=== PATIENT | female | born 1985 | race African-American/Black ===

== ENCOUNTER 2018-06-04 15:18 | Inpatient (IN) | END 2018-06-08 18:15 | disposition home or self-care (01) | DRG 313 ==

== ENCOUNTER 2018-06-14 20:50 | Emergency (ER) | END 2018-06-14 23:08 | disposition home or self-care (01) ==

== ENCOUNTER 2018-06-21 16:28 | Emergency (ER) | END 2018-06-21 17:00 | disposition home or self-care (01) ==

== ENCOUNTER 2019-01-23 12:30 | Emergency (ER) | payer MEDICARE, MEDICAID ==
[~2019-01-23] VITALS: Ht 162.6 cm; Wt 129.9 kg
[~2019-01-23 12:30] MED LIST: ACET325T33 PO; GABA300C16 PO; HALO5TAB23 PO; HYDR-3672 PO; INSU100I12 SQ; LANT3I SC; METF500T24 PO; PANT40TA4 PO; QUET400T PO; SUCR1TAB56 PO; TRAZ150T65 PO
[2019-01-23 12:38] VITALS: Ht 162.6 cm; Wt 129.9 kg
--- NOTE | 2019-01-23 12:52 | ERD ---
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 Patient reports several seizures earlier today with a fall and head injury. Total body pain requesting opiate analgesics. No specific chest pain, palpitations or shortness of breath. Complaining of generalized, crampy, non rating abdominal pain and 2-day history of black tarry stools. Mild, pressure- like, generalized headache but no visual changes no fevers or chills. ROS All systems reviewed and are negative except as per history of present illness. Medications Home Meds Reported Medications Gabapentin* (Gabapentin*) 300 Mg Capsule, 300 MG PO TID, #90 CAP 01/23/19 Multivitamin* (Daily Value*) 1 Each Tablet, 1 TAB PO DAILY, TAB 01/23/19 Calcium Citrate/Vitamin D (Citracal-Vitamin D 200 MG-250) 1 Each Tablet, 1 EACH PO DAILY, TAB 01/23/19 Escitalopram Oxalate* (Lexapro*) 5 Mg Tablet, 5 MG PO DAILY, #30 TAB 01/23/19 Trazodone Hcl* (Trazodone Hcl*) 50 Mg Tablet, 50 MG PO QHS, #30 TAB 01/23/19 Fluoxetine Hcl* (Prozac*) 40 Mg Capsule, 40 MG PO DAILY, CAP 01/23/19 Sennosides/Docusate Sodium (SENEXON-S TABLET) 1 Each Tablet, 2 EACH PO QHS, TAB 01/23/19 Lorazepam* (Ativan*) 2 Mg Tablet, 2 MG PO Q6 PRN for ANXIETY, #60 TAB 01/23/19 Ondansetron Hcl* (Zofran*) 8 Mg Tablet, 8 MG PO Q6H PRN for NAUSEA AND OR VOMITING, TAB 01/23/19 Phenytoin* Sodium Extended (Dilantin*) 300 Mg Capsule, 300 MG PO BID, CAP 01/23/19 Meclizine Hcl* (Meclizine Hcl*) 25 Mg Tablet, 25 MG PO BID PRN for DIZZINESS, TAB 01/23/19 Valsartan-Hydrochlorothiazide (Valsartan-HCTZ) 80-12.5 Mg Tablet, 1 TAB PO DAILY, #30 TAB 01/23/19 Benztropine Mesylate* (Benztropine Mesylate*) 1 Mg Tablet, 1 MG PO BID, TAB 01/23/19 Sitagliptin* (Januvia*) 50 Mg Tablet, 50 MG PO DAILY, #30 TAB 01/23/19 Levetiracetam* (Levetiracetam*) 500 Mg Tablet, 500 MG PO BID, TAB 01/23/19 Discontinued Reported Medications Trazodone Hcl* (Trazodone Hcl*) 150 Mg Tablet, 150 MG PO QHS, #30 TAB 06/02/18 Insulin Lispro (Humalog Kwikpen U-100) 100 Unit/1 Ml Insuln.pen, 0 SQ AC A, EA SLIDING SCALE NO SCALE GIVEN 06/02/18 Metformin Hcl* (Metformin Hcl*) 500 Mg Tablet, 500 MG PO WITH BREAKFAST DINNE, #60 TAB 06/02/18 Hydralazine Hcl* (Hydralazine Hcl*) 50 Mg Tab, 50 MG PO QAM, #120 TAB 06/02/18 Quetiapine Fumarate* (Seroquel*) 400 Mg Tablet, 400 MG PO HS, TAB 06/02/18 Haloperidol* (Haldol*) 5 Mg Tab, 5 MG PO QHS, TAB 06/02/18 Discontinued Scripts Acetaminophen* (Tylenol*) 325 Mg Tablet, 2 TAB PO Q6 PRN for PAIN AND OR ELEVATED TEMP, #20 TAB Prov:HANNAH IBARRA PA-C 06/14/18 Sucralfate* (Carafate*) 1 Gm Tab, 1 GM PO Q6 for 30 Days, #120 TAB 6 Refills Prov:MARTINE ROD MD 06/08/18 Pantoprazole* (Pantoprazole*) 40 Mg Tablet.dr, 40 MG PO BID@,18 for 30 Days, #60 TAB Prov:MARTINE ROD MD 06/08/18 Gabapentin* (Gabapentin*) 300 Mg Capsule, 300 MG PO TID for 30 Days, #90 CAP Prov:MARTINE ROD MD 06/08/18 Insulin Glargine* (Lantus*) 100 Unit/Ml Soln, 20 UNIT SC QHS for 30 Days, #1 VIAL 6 Refills Prov:MARTINE ROD MD 06/08/18 Allergies Allergies: Coded Allergies: ibuprofen (Verified Allergy, Unknown, 01/23/19) iodine (Verified Allergy, Unknown, states she needs benadryl if iodine is used, 01/23/19) PMhx/Soc History of Surgery: Yes (Hyterectomy 02/2017) Anesthesia Reaction: No Hx Neurological Disorder: No Hx Respiratory Disorders: Yes (Asthma) Hx Cardiac Disorders: Yes (HTN; High cholesterol) Hx Psychiatric Problems: Yes (Schizophrenia; Depression; Bipolar) Hx Miscellaneous Medical Probl: Yes (GASTRIC ULCERS) Hx Alcohol Use: No Hx Substance Use: No Hx Tobacco Use: Yes (3CIG/DAY) FmHx No sudden cardiac or stroke Physical Exam Vitals Vital Signs Date Temp Pulse Resp B/P (MAP) Pulse Ox O2 O2 Flow FiO2 Time Delivery Rate 01/23/19 100 18 117/80 99 Room Air 18:15 (92) 01/23/19 104 20 109/45 96 Room Air 17:15 (66) 01/23/19 99.7 105 20 163/97 95 Room Air 15:32 (119) 01/23/19 106 24 167/75 96 Room Air 15:00 (105) 01/23/19 106 20 147/90 95 Room Air 14:00 (109) 01/23/19 99.7 122 20 170/85 96 12:38 (113) Physical Exam Const: Anxious, moderate distress. Head: Atraumatic Eyes: Normal Conjunctiva ENT: Normal External Ears, Nose and Mouth. Negative lane sign. Neck: Full range of motion. Nontender. Resp: Breath sounds are equal and clear to auscultation bilaterally Cardio: Regular rate and rhythm, no murmurs Abd: Soft, obese, non tender, non distended. No rebound or guarding normal bowel sounds Skin: No petechiae or rashes Back: No midline or flank tenderness Ext: No cyanosis, or edema. Neur: Awake and alert Psych: Cooperative, anxious. Result Diagram: 01/23/19 1330 01/23/19 1330 Results 24 hrs Laboratory Tests Test 01/23/19 13:15 01/23/19 13:30 01/23/19 13:34 01/23/19 13:58 Stool Occult Blood NEGATIVE White Blood Count 7.8 10^3/ul Red Blood Count 4.45 10^6/ul Hemoglobin 10.2 g/dl Hematocrit 33.1 % Mean Corpuscular 74.4 fl Volume Mean Corpuscular 22.9 pg Hemoglobin Mean Corpuscular 30.8 g/dl Hemoglobin Concent Red Cell Distribution 16.1 % Width Platelet Count 224 10^3/UL Mean Platelet Volume 10.4 fl Immature Granulocytes 0.600 % % Neutrophils % 68.9 % Lymphocytes % 19.8 % Monocytes % 10.3 % Eosinophils % 0.3 % Basophils % 0.1 % Nucleated Red Blood 0.0 /100WBC Cells % Immature Granulocytes 0.050 10^3/ul # Neutrophils # 5.4 10^3/ul Lymphocytes # 1.6 10^3/ul Monocytes # 0.8 10^3/ul Eosinophils # 0.0 10^3/ul Basophils # 0.0 10^3/ul Nucleated Red Blood 0.0 10^3/ul Cells # Prothrombin Time 12.6 Sec Prothrombin Time Ratio 1.0 INR International 0.93 Normalized Ratio Activated 28.9 Sec Partial Thromboplast Time Sodium Level 136 mmol/L Potassium Level 4.1 mmol/L Chloride Level 99 mmol/L Carbon Dioxide Level 28 mmol/L Anion Gap 9 Blood Urea Nitrogen 10 mg/dl Creatinine 0.56 mg/dl Est Glomerular Filtrat > 60 mL/min Rate mL/min Glucose Level 242 mg/dl Calcium Level 6.9 mg/dl Total Bilirubin 0.2 mg/dl Direct Bilirubin 0.00 mg/dl Indirect Bilirubin 0.2 mg/dl Aspartate Amino 17 IU/L Transf (AST/SGOT) Alanine 25 IU/L Aminotransferase (ALT/ SGPT) Alkaline Phosphatase 143 IU/L Total Protein 7.0 g/dl Albumin 3.7 g/dl Phenytoin (Dilantin) 13.7 ug/ml Level Ethyl Alcohol Level < 10.0 mg/dl Bedside Glucose 241 mg/dL Urine Opiates Screen Positive Urine Barbiturates Negative Urine Amphetamines Negative Screen Urine Benzodiazepines Negative Screen Urine Cocaine Screen Negative Urine Cannabinoids Negative Test 01/23/19 14:08 POC Beta HCG, NEGATIVE Qualitative Current Medications Medications Dose Sig/Marilyn Start Time Status Last (Trade) Ordered Route PRN Stop Time Admin Dose Reason Admin 50 mg ONCE ONCE 01/23/19 DC 01/23/19 Diphenhydrami IV 14:00 01/23/19 13:47 ne HCl 14:01 (Benadryl) 500 mg ONCE ONCE 01/23/19 DC 01/23/19 Levetiracetam PO 14:30 01/23/19 15:16 (Keppra) 14:31 650 mg ONCE ONCE 01/23/19 DC 01/23/19 Acetaminophen PO 14:30 01/23/19 14:12 (Tylenol 14:31 Tab) Lorazepam 1 mg ONCE ONCE 01/23/19 DC 01/23/19 (Ativan) IV 15:00 01/23/19 14:45 15:01 Ondansetron 4 mg ER BRIDGE 01/23/19 HCl (Zofran PRN IV 16:00 01/24/19 Inj) NAUSEA/VOMITI 15:59 NG 650 mg ER BRIDGE 01/23/19 Acetaminophen PRN PO 16:00 01/24/19 (Tylenol .MILD PAIN 15:59 Tab) 1-3 OR TEMP 1 tab ONCE ONCE 01/23/19 DC 01/23/19 Acetaminophen PO 19:00 01/23/19 19:03 / 19:01 Hydrocodone Bitart ([place] (5/325)) 50 mg ONCE ONCE 01/23/19 DC 01/23/19 Diphenhydrami IV 19:30 01/23/19 19:15 ne HCl 19:31 (Benadryl) Procedures/MDM DOCUMENTS REVIEWED: ED nurse, prior records EKG: Time: 1324. Sinus tachycardia. Ventricular rate 105. Normal IA QRS. Nonspecific T wave changes. No acute ST segment elevation or depression. No ectopy. My Interpretation IMAGING: Pelvis 1 view: No fracture or soft tissue abnormality Left hip: 2 views: No fracture, dislocation or soft tissue abnormality. PROCEDURE: CT Brain without contrast. CLINICAL INDICATION: Seizure. TECHNIQUE: A CT of the brain without contrast was performed utilizing axial sections from the skull base through the vertex. The patient was scanned without intravenous contrast enhancement. Sagittal and coronal reformatted images were obtained using the data from the axial images. Total exam DLP is 713.51 mGy-cm. CTDIvol is 38.20 mGy. One or more of the following dose reduction techniques were used: Automated exposure control, adjustment of the mA and/or kV according to patient size, use of iterative reconstruction technique. DICOM images are available. COMPARISON: None available FINDINGS: There is normal escalona-white matter differentiation. The ventricles and cisterns are normal. There is no intracranial hemorrhage or space-occupying lesion. There is no skull fracture or lytic lesion. IMPRESSION: 1. Normal noncontrast CT scan of the brain. 2. No intracranial hemorrhage. RPTAT: QQ .Jesus Alberto Avalos MD, MD Date Time Electronically viewed and signed by .Jesus Alberto Avalos MD, MD on 01/23/2019 15:17 .R/ [employer]ISION MAKIN-year-old female with history of hypertension, diabetes, bipolar, schizophrenia, obesity, seizure disorder, CVA at the age of [age] with residual left-sided deficit, obesity and GERD presents to the ED for evaluation of seizures. CBC significant for mild anemia consistent with prior results but no leukocytosis or thrombocytopenia. Chemistry reveals mild hyperglycemia but no electrolyte abnormalities, renal insufficiency, anion gap acidosis or criteria for DKA. Dilantin level is therapeutic at 13.7. Hypocalcemia consistent with prior results of uncertain etiology. Urine drugs of abuse screen is positive for opiates. Patient required lorazepam 1 mg IV prior to CT. CT of the brain to evaluate for bleed, infarct, mass and ischemia is unremarkable. Patient complained of ongoing severe left hip pain but radiographs of the pelvis and left hip are unremarkable for fracture, dislocation or soft tissue abnormalities. Patient continuously demanding intravenous opiates for pain control likely chronic as there is no clear identifiable acute process. fast food services manager consultation obtained. Telehealth psychiatry consultation and patient admitted to suicidal, command auditory hallucinations. Involuntary hold was rec ommended. PET team evaluation is pending. CALLS/CONSULTS: Time: 16:30, Telehealth psychiatry, Dr. Hernandez. Recommends involuntary hold. Time: 20:00. Endorsed to Dr Fraga Departure Diagnosis: Primary Impression: Suicidal ideations Additional Impressions: Seizure disorder Chronic pain Chronic pain type: other chronic pain Qualified Codes: G89.29 - Other chronic pain Condition: Serious RAIZA VARGAS MD Jan 23, 2019 12:52
[2019-01-23] MEDS ORDERED: DIPHENHYDRAMINE 50 MG INJ IV ONE ×2 (14:00→19:30)
[2019-01-23] MEDS ORDERED: LEVETIRACETAM 500 MG TAB PO ONE (14:30)
[2019-01-23] MEDS ORDERED: ACETAMINOPHEN 325 MG TAB PO ONE (14:30)
[2019-01-23] MEDS ORDERED: LORAZEPAM 2 MG INJ IV ONE (15:00)
[2019-01-23] MEDS ORDERED: ACETAMINOPHEN 325 MG TAB PO PRN (16:00)
[2019-01-23] MEDS ORDERED: ONDANSETRON 4 MG INJ IV PRN (16:00)
--- NOTE | 2019-01-23 16:52 | PSY ---
Date/Time of Note Date/Time of Note DATE: 01/23/19 TIME: 19:44 Psychiatric Subjective Eval Consent Pt consented to telemedicine: Yes Subjective Evaluation Patient location: emergency Chief Complaint: hx of seizures, had 2 seizure fell no notable injury History of present illness HPI: 33-year-old female with ho psychosis came in with seizures and fall. was asked to see pt. She reports she has CAH to kill self. Denies drug use uses. Reports good mood. Had paucity of thought/speech. Past Psych Hx: + ho suicide attempt and admits PMHx: hypertension, diabetes, bipolar, schizophrenia, obesity, seizure disorder, CVA Mes: insulin All: ibuprofen, iodine, morphine MSE: obese, dystonic eyes, cooperative, casually groomed, dysthymic, restricted organized, paucity of thought, no delusions + AH to kill self, impaired insight Imp: 33 yo female with CAH to kill self 5150 for danger to self 1:1 on medical unit d/w attending Medical history Problems Medical Problems: (1) Abdominal pain Status: Acute (2) Chest pain Status: Acute (3) Chest pain Status: Acute (4) Chest pain Status: Acute Allergies: Coded Allergies: ibuprofen (Verified Allergy, Unknown, 06/21/18) iodine (Verified Allergy, Unknown, states she needs benadryl if iodine is used, 06/21/18) morphine (Verified Allergy, Unknown, 06/21/18) Psychiatric Objective Eval Mental Status Examination: Laboratory Results Laboratory Tests Test 01/23/19 13:15 01/23/19 13:30 01/23/19 13:34 01/23/19 13:58 Stool Occult Blood NEGATIVE White Blood Count 7.8 10^3/ul Red Blood Count 4.45 10^6/ul Hemoglobin 10.2 g/dl Hematocrit 33.1 % Mean Corpuscular 74.4 fl Volume Mean Corpuscular 22.9 pg Hemoglobin Mean Corpuscular 30.8 g/dl Hemoglobin Concent Red Cell Distribution 16.1 % Width Platelet Count 224 10^3/UL Mean Platelet Volume 10.4 fl Immature Granulocytes 0.600 % % Neutrophils % 68.9 % Lymphocytes % 19.8 % Monocytes % 10.3 % Eosinophils % 0.3 % Basophils % 0.1 % Nucleated Red Blood 0.0 /100WBC Cells % Immature Granulocytes 0.050 10^3/ul # Neutrophils # 5.4 10^3/ul Lymphocytes # 1.6 10^3/ul Monocytes # 0.8 10^3/ul Eosinophils # 0.0 10^3/ul Basophils # 0.0 10^3/ul Nucleated Red Blood 0.0 10^3/ul Cells # Prothrombin Time 12.6 Sec Prothrombin Time Ratio 1.0 INR International 0.93 Normalized Ratio Activated 28.9 Sec Partial Thromboplast Time Sodium Level 136 mmol/L Potassium Level 4.1 mmol/L Chloride Level 99 mmol/L Carbon Dioxide Level 28 mmol/L Anion Gap 9 Blood Urea Nitrogen 10 mg/dl Creatinine 0.56 mg/dl Est Glomerular Filtrat > 60 mL/min Rate mL/min Glucose Level 242 mg/dl Calcium Level 6.9 mg/dl Phenytoin (Dilantin) 13.7 ug/ml Level Ethyl Alcohol Level < 10.0 mg/dl Bedside Glucose 241 mg/dL Urine Opiates Screen Positive Urine Barbiturates Negative Urine Amphetamines Negative Screen Urine Benzodiazepines Negative Screen Urine Cocaine Screen Negative Urine Cannabinoids Negative Test 01/23/19 14:08 POC Beta HCG, NEGATIVE Qualitative Assessment and Plan Recommendation/Plan Multiple antipsychotics: No Discharge Disposition: Psychiatric inpatient Legal Status: Place involuntary hold THEA GILL Jan 23, 2019 16:52
[2019-01-23] MEDS ORDERED: BENZ1TAB7 PO (17:32)
[2019-01-23] MEDS ORDERED: SITA50TA2 PO (17:32)
[2019-01-23] MEDS ORDERED: LEVE500T8 PO (17:32)
[2019-01-23] MEDS ORDERED: VALS1TAB74 PO (17:33)
[2019-01-23] MEDS ORDERED: MECL-77 PO (17:33)
[2019-01-23] MEDS ORDERED: PHEN300C2 PO (17:34)
[2019-01-23] MEDS ORDERED: ONDA8TAB9 PO (17:34)
[2019-01-23] MEDS ORDERED: SENN-203 PO (17:35)
[2019-01-23] MEDS ORDERED: LORA-444 PO (17:35)
[2019-01-23] MEDS ORDERED: ESCI5TAB PO (17:36)
[2019-01-23] MEDS ORDERED: FLUO40CA10 PO (17:36)
[2019-01-23] MEDS ORDERED: TRAZ-111 PO (17:36)
[2019-01-23] MEDS ORDERED: GABA300C16 PO (17:37)
[2019-01-23] MEDS ORDERED: CALC-143 PO (17:37)
[2019-01-23] MEDS ORDERED: MULT-542 PO (17:37)
[2019-01-23] MEDS ORDERED: HYDROCODONE/APAP (5/325) TAB PO ONE (19:00)
[2019-01-24 04:10] VITALS: BP 133/70; PULSE 91; RESP 18
[2019-01-24] MEDS ORDERED: HYDROCODONE/APAP (5/325) TAB PO ONE (06:00)
[2019-01-24] MEDS ORDERED: DIPHENHYDRAMINE 50 MG CAP PO ONE (07:00)
== END 2019-01-24 09:02 | disposition home or self-care (01) ==
LOC: E/R 12:30
DX: G40.909 Epilepsy, unspecified, not intractable, without status epilepticus (principal); G89.29 Other chronic pain; R45.851 Suicidal ideations; J45.909 Unspecified asthma, uncomplicated; E11.9 Type 2 diabetes mellitus without complications; E66.9 Obesity, unspecified; I10 Essential (primary) hypertension; Z86.73 Personal history of transient ischemic attack (TIA), and cerebral infarction without residual deficits; Z68.42 Body mass index [BMI] 45.0-49.9, adult
CPT/HCPCS: 70450; 72170; 73510; 80048; 80076; 80185; 80307; 81025; 82270; 82330; 82962; 85025; 85610; 85730; 93005; J1200; J2060; 36415; 96374; 96375; 96376